=== PATIENT | female | born 1970 | race Caucasian/White ===

== ENCOUNTER 2023-10-06 07:47 | Emergency (ER) | payer BC, OTHER ==
[~2023-10-06] VITALS: Ht 147.3 cm; Wt 56.0 kg
[2023-10-06 07:57] VITALS: BP 127/75; PULSE 94; RESP 18; TEMP 98.5; O2SAT 98
[2023-10-06] MEDS ORDERED: TOPUD PO (08:39)
[2023-10-06] MEDS ORDERED: ONDA4TAB11 PO (08:39)
[2023-10-06] MEDS ORDERED: DICL100G58 TP (08:39)
== END 2023-10-06 08:47 | disposition home or self-care (01) ==
LOC: ER 08:12
DX: M54.2 Cervicalgia (principal); V49.49XA Driver injured in collision with other motor vehicles in traffic accident, initial encounter; Y93.89 Activity, other specified; Y92.89 Other specified places as the place of occurrence of the external cause; Y99.8 Other external cause status
CPT/HCPCS: 99281; 99283